=== PATIENT | female | born 1965 | race African-American/Black ===

== ENCOUNTER 2016-07-30 19:26 | Emergency (ER) | payer OTHER ==
[~2016-07-30 19:26] MED LIST: ALBUTEROL17 GM INH; BENZONATATE PO; COMBIVENT U/D3 M2 INH; LEVAQUIN250 MG PO; LISINOPRIL10 MG PO; NAPROSYN-EC500 M1 PO; NORCO1 TAB 10/3 PO; OMEPRAZOLE20 M2 PO; PHENERGAN25 M1 PO; PREDNISONE PO; PREDNISONE10 MG/DOSE PO; ROBAXIN 750750 MG PO; SYMBICORT 16010.2 GM INH; TAMIFLU75 M1 PO; TESSALON PERLE100 M1 PO; TYLENOL325 M1 PO
== END 2016-07-30 22:21 | disposition home or self-care (01) ==
LOC: CED 19:26 → CFTX 19:26
DX: J02.9 Acute pharyngitis, unspecified (principal); J04.0 Acute laryngitis; J45.909 Unspecified asthma, uncomplicated; J44.9 Chronic obstructive pulmonary disease, unspecified; F17.210 Nicotine dependence, cigarettes, uncomplicated; Z90.710 Acquired absence of both cervix and uterus
CPT/HCPCS: 87651; 99283

== ENCOUNTER 2016-10-17 14:12 | Emergency (ER) | payer OTHER ==
[~2016-10-17] VITALS: Ht 160 cm; Wt 66.2 kg
--- NOTE | ~2016-10-17 | EKG ---
PATIENT: BALAJI CHUNG UNIT #: [id number] Ventricular Rate: 57 BPM Atrial Rate: 57 BPM P-R Interval: 138 ms QRS Duration: 72 ms Q-T Interval: 472 ms QTC Calculation(Bezet): 459 ms P [place]: 70 degrees Calculated R [place]: 30 degrees Calculated T [place]: 4 degrees Diagnosis Line: Sinus bradycardia Diagnosis Line: Otherwise normal ECG Diagnosis Line: Diagnosis Line: Confirmed by MAVIS JEFFRIES MD ([id number]) on 10/20/2016 Diagnosis Line: 1:51:18 PM INTERPRETING MD: MERVIN GREER
--- NOTE | ~2016-10-17 | CR72 ---
[facility] A Service of [facility] RADIOLOGY TEXT RESULTS PATIENT: BALAJI CHUNG LOCATION: [facility] : 61 UNIT #: [id number] AGE: [address]: Isiah Newman MD SEX: F ORDER DR: [id number] [facility] [address] [place], [place] [address] [id number] E MR#: [id number] Acc #: [id number] NAME: BALAJI CHUNG : 1965 SEX: F STUDY DATE/TIME: 10/17/2016 14:43 UNIT: [facility] ROOM: STUDY DESCRIPTION: CR Chest Single View Portable Attending Physician: Mahad Newman M.D. Referring Physician: Luis Miguel Godoy M.D. Ordering Physician: Ed Pramod Holguin M.D. Primary Care Physician: Nuvia Jimenes A.P.R.N. MEDICAL IMAGING REPORT This report is preliminary unless electronic signature is present EXAMINATION AP portable chest. DATE 10/17/2016 at 14:43. HISTORY Shortness breath and right side sharp chest pain today. COMPARISON PA and lateral chest radiograph, 04/16/2013. FINDINGS No acute airspace disease. Benign calcified granuloma in the left lower lobe. Normal heart size. No pleural effusion or pneumothorax. IMPRESSION 1. No acute cardiopulmonary findings. Dictated by... Sanjuana Baker M.D. THIS IS AN ELECTRONICALLY VERIFIED REPORT Sanjuana Baker M.D. at 10/23/2016 8:37 AM VERONIKA/timoteo TD: 10/17/2016 20:56 JOB #: [id number] MEDICAL IMAGING REPORT Page 1 of 1 COPY
[2016-10-17 15:03] LABS: POC - CKMB 1.4 ng/mL (0.0-7.9); POC - TROPONIN <0.05 ng/mL (<=0.05)
[2016-10-17 15:13] LABS: BASOPHIL# 0.1 X10e3 (0-0.3); BASOPHIL% 0.9 % (0-2.5); EOSINOPHIL# 0.3 X10e3 (0-0.7); EOSINOPHIL% 4.3 % (0.0-7.0); HEMATOCRIT 40.3 % (35.0-45.0); HEMOGLOBIN 13.6 gm/dL (12.0-16.0); LYMPHOCYTE# 2.8 X10e3 (1.0-3.5); LYMPHOCYTE% 35.7 % (17.0-45.0); MEAN CELL VOLUME 90.5 FL (83-96); MEAN CORPUSCULAR HEMOGLOBIN 30.4 PG (28-34); MEAN CORPUSCULAR HGB CONC 33.6 g/dL (30-36); MEAN PLATELET VOLUME 8.5 FL (6.5-11.5); MONOCYTE# 0.6 X10e3 (0-1.0); MONOCYTE% 7.7 % (3.0-12.0); NEUTROPHIL% 51.4 % (40-75); PLATELET COUNT 318 X10e3 (140-420); RED BLOOD COUNT 4.46 X10e (3.90-5.30); RED CELL DISTRIBUTION WIDTH 14.9 % (11.0-15.5); WHITE BLOOD COUNT 7.9 X10e3 (4.0-10.5)
[2016-10-17 15:14] LABS: DIFF IND NO
[2016-10-17 15:36] LABS: ALBUMIN SERUM 4.2 g/dL (3.5-5.0); BILIRUBIN, DIRECT 0.1 mg/dL (0.0-0.2); BILIRUBIN,INDIRECT 0.1 mg/dL (0.0-0.9); BILIRUBIN,TOTAL 0.2 mg/dL (0.2-2.0); POTASSIUM 3.8 mmol/L (3.5-5.1)
[2016-10-17 16:29] LABS: POC - CKMB <1.0 ng/mL (0.0-7.9); POC - TROPONIN <0.05 ng/mL (<=0.05)
[2016-10-17 19:59] LABS: POC - CKMB 1.2 ng/mL (0.0-7.9); POC - TROPONIN <0.05 ng/mL (<=0.05)
== END 2016-10-17 17:16 | disposition home or self-care (01) ==
LOC: CED 14:12
PROVIDERS: Emergency Medicine
DX: R07.89 Other chest pain (principal); E78.5 Hyperlipidemia, unspecified; J44.9 Chronic obstructive pulmonary disease, unspecified; F17.210 Nicotine dependence, cigarettes, uncomplicated
CPT/HCPCS: 36415; 71010; 80048; 80076; 82553; 84484; 85025; 93005; 99285; J1885